=== PATIENT | female | born 1980 | race American Indian/Alaskan Native ===

== ENCOUNTER 2022-02-23 10:33 | Emergency (ER) | payer BC ==
[2022-02-23 12:26] LABS: Mean Corpuscular HGB Conc 28 % (30-34); Platelet Count 453 K/mm3 (140-440); Red Blood Count 4.75 M/mm3 (3.65-5.03)
[2022-02-23 12:49] LABS: Alanine Aminotransferase 6 units/L (7-56); Albumin 3.8 g/dL (3.9-5); BUN/Creatinine Ratio 7; Blood Urea Nitrogen 6 mg/dL (7-17); Calcium 8.9 mg/dL (8.4-10.2); Hemolysis Index 0
[2022-02-23 12:51] LABS: Hematocrit 23.9 % (30.3-42.9); Hemoglobin 6.7 gm/dl (10.1-14.3); Mean Corpuscular Volume 50 fl (79-97); Red Cell Distribution Width 20.7 % (13.2-15.2)
--- NOTE | 2022-02-23 12:52 | Emergency Department Report ---
ED General Adult HPI - General Chief complaint: Recheck/Abnormal Lab/Rx Stated complaint: DR ESTRADA BLOOD TRANSFUSION Time Seen by Provider: 02/23/22 12:36 Source: patient, RN notes reviewed, old records reviewed Mode of arrival: Ambulatory Limitations: No Limitations - History of Present Illness Initial comments: The patient was evaluated in the emergency department for symptoms described in the history of present illness. He/she was evaluated in the context of the global COVID-19 pandemic, which necessitated consideration that the patient might be at risk for infection with the virus that causes COVID-19. Institutional protocols and algorithms that pertain to the evaluation of patients at risk for COVID-19 are in a state of rapid change based on information released by regulatory bodies including the CDC and federal and state organizations. These policies and algorithms were followed during the patient's care in the emergency department. Please note that these policies, procedures and recommendations changed on a rapid basis. The patient is a 41-year-old female who was referred to the emergency room by her primary care doctor for possible blood transfusion. The patient reports that she recently got insurance. The patient reports that she was recently living in [place], [place], but has relocated to [place] about 2 years ago. She recently got insurance, and just started seeing a new primary care doctor. Her current past medical history includes body mass index of 41, hypertension, fibroids, and anxiety. She reports no headache, neck pain, chest pain, abdominal pain, vomiting, hematemesis or bright red blood per rectum, and she denies heavy vaginal bleeding at the moment. On review of systems, she reports intermittent "dizzy spells", nonspecific, the last of which happened last week, and is typically improved with consumption of water. She denies oral contraceptive use, the possibility of , travel, surgery, immobilization, DVT/PE risk factors. She is not certain that she would have presented to the emergency room, if not instructed by her outpatient primary care doctor. She reports that outpatient laboratory studies were ordered, as part of her onboarding process with a new primary care doctor. She is not currently taking iron sulfate supplementation. Associated Symptoms: denies other symptoms - Related Data Previous Rx's Medication Instructions Recorded Last Taken Type Docusate Sodium [Colace] 100 mg PO BID PRN #60 capsule 02/23/22 Unknown Rx Ferrous Sulfate [Feosol 325 MG tab] 325 mg PO TID #90 tablet 02/23/22 Unknown Rx Allergies Allergy/AdvReac Type Severity Reaction Status Date / Time adhesive tape Allergy Rash Verified 02/23/22 11:14 hydrocodone Allergy Hives Verified 02/23/22 11:14 ED Review of Systems ROS: Stated complaint: DR ESTRADA BLOOD TRANSFUSION Other details as noted in HPI Comment: All other systems reviewed and negative Cardiovascular: other (Nonspecific dizziness) Psychiatric: anxiety ED Past Medical Hx - Past Medical History Previous Medical History?: Yes Hx Hypertension: Yes Additional medical history: ANEMIA, ANXIETY - Surgical History Past Surgical History?: No - Medications Home Medications: Home Medications Medication Instructions Recorded Confirmed Last Taken Type Docusate Sodium [Colace] 100 mg PO BID PRN #60 capsule 02/23/22 Unknown Rx Ferrous Sulfate [Feosol 325 MG tab] 325 mg PO TID #90 tablet 02/23/22 Unknown Rx ED Physical Exam - General Limitations: No Limitations General appearance: alert, in no apparent distress, obese - Head Head exam: Present: atraumatic, normocephalic - Eye Eye exam: Present: normal appearance, EOMI. Absent: nystagmus - ENT ENT exam: Present: normal exam, normal orophraynx, mucous membranes moist, normal external ear exam - Neck Neck exam: Present: normal inspection, full ROM. Absent: tenderness, meningismus - Respiratory Respiratory exam: Present: normal lung sounds bilaterally. Absent: respiratory distress, wheezes, rales, rhonchi, stridor, decreased breath sounds - Cardiovascular Cardiovascular Exam: Present: regular rate, normal rhythm, normal heart sounds. Absent: bradycardia, tachycardia, irregular rhythm, systolic murmur, diastolic murmur, rubs, gallop - GI/Abdominal GI/Abdominal exam: Present: soft. Absent: distended, tenderness, guarding, rebound, rigid, pulsatile mass - Extremities Exam Extremities exam: Present: normal inspection, full ROM, other (2+ pulses noted in the bilateral upper and lower extremities. There is no palpable cord. negative Homans sign. Muscular compartments are soft. The pelvis is stable.). Absent: calf tenderness - Back Exam Back exam: Present: normal inspection, full ROM. Absent: tenderness, CVA tenderness (R), CVA tenderness (L), paraspinal tenderness, vertebral tenderness - Neurological Exam Neurological exam: Present: alert, oriented X3, other (No facial droop. Tongue midline. Extraocular movements intact bilaterally. Facial sensation intact to light touch in V1, V2, V3 distribution bilaterally. 5 and a 5 strength in 4 extremities. Sensation intact to light touch in 4 extremities.). Absent: motor sensory deficit - Psychiatric Psychiatric exam: Present: normal affect, normal mood - Skin Skin exam: Present: warm, dry, intact, normal color. Absent: rash ED Course Vital Signs 02/23/22 02/23/22 02/23/22 10:59 12:51 13:10 Temperature 98.1 F Pulse Rate 87 80 Respiratory 14 12 Rate Blood Pressure 125/82 O2 Sat by Pulse 100 98 Oximetry O2 Sat by Pulse Oximetry [ Digit-Finger] 02/23/22 02/23/22 02/23/22 13:14 13:16 13:30 Temperature Pulse Rate 81 82 Respiratory 17 18 Rate Blood Pressure 131/82 127/82 O2 Sat by Pulse 100 98 Oximetry O2 Sat by Pulse 99 Oximetry [ Digit-Finger] 02/23/22 02/23/22 02/23/22 13:46 14:00 14:10 Temperature 98.0 F Pulse Rate 79 79 84 Respiratory 17 17 19 Rate Blood Pressure 127/82 125/82 125/82 O2 Sat by Pulse 100 97 100 Oximetry O2 Sat by Pulse Oximetry [ Digit-Finger] 02/23/22 02/23/22 02/23/22 14:16 14:31 14:45 Temperature Pulse Rate 82 80 75 Respiratory 13 19 17 Rate Blood Pressure 125/82 125/82 115/75 O2 Sat by Pulse 100 100 100 Oximetry O2 Sat by Pulse Oximetry [ Digit-Finger] 02/23/22 02/23/22 02/23/22 15:01 15:15 15:31 Temperature Pulse Rate 78 74 80 Respiratory 21 21 21 Rate Blood Pressure 128/79 130/78 144/70 O2 Sat by Pulse 99 100 100 Oximetry O2 Sat by Pulse Oximetry [ Digit-Finger] 02/23/22 02/23/22 02/23/22 15:45 16:01 16:15 Temperature Pulse Rate 80 82 80 Respiratory 22 17 10 L Rate Blood Pressure 133/75 125/72 124/74 O2 Sat by Pulse 99 100 100 Oximetry O2 Sat by Pulse Oximetry [ Digit-Finger] 02/23/22 02/23/22 02/23/22 16:31 16:45 17:01 Temperature Pulse Rate 80 81 81 Respiratory 19 20 19 Rate Blood Pressure 129/72 129/72 124/81 O2 Sat by Pulse 100 99 98 Oximetry O2 Sat by Pulse Oximetry [ Digit-Finger] 02/23/22 02/23/22 02/23/22 17:16 17:29 17:31 Temperature 98.9 F Pulse Rate Respiratory Rate Blood Pressure 124/81 124/81 O2 Sat by Pulse 81 L 100 Oximetry O2 Sat by Pulse Oximetry [ Digit-Finger] 02/23/22 02/23/22 02/23/22 17:45 18:01 18:11 Temperature Pulse Rate Respiratory Rate Blood Pressure 124/81 130/86 130/86 O2 Sat by Pulse 100 100 100 Oximetry O2 Sat by Pulse Oximetry [ Digit-Finger] 02/23/22 02/23/22 02/23/22 18:21 18:31 18:41 Temperature Pulse Rate Respiratory Rate Blood Pressure 130/86 130/86 130/86 O2 Sat by Pulse 100 99 98 Oximetry O2 Sat by Pulse Oximetry [ Digit-Finger] 02/23/22 02/23/22 02/23/22 19:01 19:15 19:31 Temperature Pulse Rate Respiratory Rate Blood Pressure 124/92 130/86 130/86 O2 Sat by Pulse 98 99 94 Oximetry O2 Sat by Pulse Oximetry [ Digit-Finger] 02/23/22 02/23/22 02/23/22 19:45 20:01 20:15 Temperature Pulse Rate Respiratory Rate Blood Pressure 130/86 132/89 132/89 O2 Sat by Pulse 100 99 99 Oximetry O2 Sat by Pulse Oximetry [ Digit-Finger] 02/23/22 02/23/22 02/23/22 20:30 20:45 20:58 Temperature 98.3 F Pulse Rate Respiratory Rate Blood Pressure 130/86 132/89 O2 Sat by Pulse 98 100 Oximetry O2 Sat by Pulse Oximetry [ Digit-Finger] - Reevaluation(s) Reevaluation #1: 02/23/22 12:51 Differential diagnosis, include but not limited to: Anemia, electrolyte derangement, orthostasis, dehydration, laboratory error Assessment and plan: 41-year-old female who is referred to the emergency room for asymptomatic anemia. This is likely a chronic finding, as the patient does not appear to be acutely decompensated. She is clinically sober with a GCS of 15, and she is not currently tachycardic, tachypneic or hypoxic. She denies vaginal bleeding and rectal bleeding at this time. CBC pending. Contacted the lab, they cannot find it. I have asked for escalated this matter to the director of laboratory studies, Manuel Camara, to address and follow-up missing CBC. Currently awaiting result. EKG pending. Reassess. I discussed this plan of care with the patient. She is agreeable to the plan of care. All questions answered. 02/23/22 13:04 Patient is found to have a microcytic anemia. Her laboratory studies are othe rwise unremarkable, with exception of mild hypokalemia. Went back and we discussed this with patient. Discussed risk, benefits alternatives of packed red blood cell transfusion. Patient prefers to have packed red blood cell transfusion. Therefore, I have ordered packed red blood cell transfusion. Once blood transfusion is complete, discharged with iron sulfate supplementation, and outpatient follow-up. I will also refer her to outpatient hematology, in case that she would like to start following up for outpatient iron infusions. - Pulse Oximetry Interpretation Digit-Finger Initial Pulse Oximetry Readin O2 Sat by Pulse Oximetry: 99 Actions Taken: none ED Medical Decision Making - Lab Data Result diagrams: 02/23/22 12:05 02/23/22 12:05 Vital Signs 02/23/22 10:59 Temperature 98.1 F Pulse Rate 87 Respiratory 14 Rate Blood Pressure 125/82 O2 Sat by Pulse 100 Oximetry Lab Results 02/23/22 02/23/22 Range/Units 12:05 12:05 Sodium 138 (137-145) mmol/L Potassium 3.4 L (3.6-5.0) mmol/L Chloride 101.5 (98-107) mmol/L Carbon Dioxide 28 (22-30) mmol/L Anion Gap 12 mmol/L BUN 6 L (7-17) mg/dL Creatinine 0.9 (0.6-1.2) mg/dL Estimated GFR > 60 ml/min BUN/Creatinine Ratio 7 % Glucose 101 H (65-100) mg/dL Calcium 8.9 (8.4-10.2) mg/dL Total Bilirubin 0.30 (0.1-1.2) mg/dL AST 9 (5-40) units/L ALT 6 L (7-56) units/L Alkaline Phosphatase 85 (35-129) units/L Total Protein 8.0 (6.3-8.2) g/dL Albumin 3.8 L (3.9-5) g/dL Albumin/Globulin Ratio 0.9 % Blood Type A POSITIVE Lab Results 02/23/22 02/23/22 02/23/22 Range/Units 12:05 12:05 12:05 WBC 11.6 H (4.5-11.0) K/mm3 RBC 4.75 (3.65-5.03) M/mm3 Hgb 6.7 L (10.1-14.3) gm/dl Hct 23.9 L (30.3-42.9) % MCV 50 L (79-97) fl MCH 14 L (28-32) pg MCHC 28 L (30-34) % RDW 20.7 H (13.2-15.2) % Plt Count 453 H (140-440) K/mm3 PT 13.9 (12.2-14.9) Sec. INR 0.97 (0.87-1.13) Sodium 138 (137-145) mmol/L Potassium 3.4 L (3.6-5.0) mmol/L Chloride 101.5 (98-107) mmol/L Carbon Dioxide 28 (22-30) mmol/L Anion Gap 12 mmol/L BUN 6 L (7-17) mg/dL Creatinine 0.9 (0.6-1.2) mg/dL Estimated GFR > 60 ml/min BUN/Creatinine Ratio 7 % Glucose 101 H (65-100) mg/dL Calcium 8.9 (8.4-10.2) mg/dL Magnesium (1.7-2.3) mg/dL Total Bilirubin 0.30 (0.1-1.2) mg/dL AST 9 (5-40) units/L ALT 6 L (7-56) units/L Alkaline Phosphatase 85 (35-129) units/L Total Protein 8.0 (6.3-8.2) g/dL Albumin 3.8 L (3.9-5) g/dL Albumin/Globulin Ratio 0.9 % HCG, Quant (0-4) mIU/mL Blood Type Antibody Screen 02/23/22 02/23/22 02/23/22 Range/Units 12:05 12:05 12:05 WBC (4.5-11.0) K/mm3 RBC (3.65-5.03) M/mm3 Hgb (10.1-14.3) gm/dl Hct (30.3-42.9) % MCV (79-97) fl MCH (28-32) pg MCHC (30-34) % RDW (13.2-15.2) % Plt Count (140-440) K/mm3 PT (12.2-14.9) Sec. INR (0.87-1.13) Sodium (137-145) mmol/L Potassium (3.6-5.0) mmol/L Chloride (98-107) mmol/L Carbon Dioxide (22-30) mmol/L Anion Gap mmol/L BUN (7-17) mg/dL Creatinine (0.6-1.2) mg/dL Estimated GFR ml/min BUN/Creatinine Ratio % Glucose (65-100) mg/dL Calcium (8.4-10.2) mg/dL Magnesium 2.20 (1.7-2.3) mg/dL Total Bilirubin (0.1-1.2) mg/dL AST (5-40) units/L ALT (7-56) units/L Alkaline Phosphatase (35-129) units/L Total Protein (6.3-8.2) g/dL Albumin (3.9-5) g/dL Albumin/Globulin Ratio % HCG, Quant < 2 (0-4) mIU/mL Blood Type A POSITIVE Antibody Screen Negative - EKG Data -: EKG Interpreted by Wy EKG shows normal: sinus rhythm Rate: normal - EKG Data When compared to previous EKG there are: previous EKG unavailable 02/23/22 13:13 The EKG is interpreted at 13: 10 Sinus rhythm, 81 bpm. Normal axis, normal P wave axis, high left ventricular voltage, motion artifact, QTC 41 ms. This is not a STEMI. Abnormal EKG. No pr ior for comparison peer Critical care attestation.: If time is entered above; I have spent that time in minutes in the direct care of this critically ill patient, excluding procedure time. ED Disposition Clinical Impression: Microcytic anemia, Hypokalemia Disposition: HOME / SELF CARE / HOMELESS Is pt being admited?: No Does the pt Need Aspirin: No Condition: Good Instructions: Iron-Rich Diet Additional Instructions: Recommend that patient follow-up with a primary care doctor or hand dry cleaner such as Dr. Bruce within the next week for microcytic presumed iron deficiency anemia. Patient may coordinate with a hand dry cleaner such as Dr. Bruce to organize outpatient iron infusions. In the meantime, patient will receive a prescription for iron sulfate, please exercise caution when taking this medication, as it may cause black stool, abdominal pain/constipation. Please consume an iron rich diet as directed in discharge instructions, drink at least 4 cups of water per day, a low sodium diet, and consume plenty of fiber, vegetable, lean protein. Patient may take the prescribed Colace as needed for constipation, if she develops constipation from iron sulfate tablets. Please return to the emergency room right away with new pain, worsened pain, migration of pain, projectile vomiting, change in mental status, confusion, inability tolerate liquid feeds, new, worsened or different symptoms not present on the initial emergency room evaluation Prescriptions: Docusate Sodium [Colace] 100 mg PO BID PRN #60 capsule PRN Reason: Constipation Ferrous Sulfate [Feosol 325 MG tab] 325 mg PO TID #90 tablet Referrals: CHILO BRUCE MD [Staff Physician] - 3-5 Days [facility] [Provider Group] - 3-5 Days Forms: Work/School Release Form(ED)
[2022-02-23 12:53] LABS: INR 0.97 (0.87-1.13)
[2022-02-23] MEDS ORDERED: POTASSIUM CHLORIDE ER 20 MEQ TAB PO ONE (12:59)
[2022-02-23] MEDS ORDERED: SODIUM CHLORIDE 0.9% 500 ML 500 ML IV ONE (13:04)
[2022-02-23 20:57] VITALS: BP 132/89
--- NOTE | 2022-02-25 14:03 | Electrocardiograph Report ---
[facility] Test Date: 2022-02-23 Test Time: 13:05:21 Pat Name: CHAYITO URIOSTEGUI Department: Room: Gender: F [employer]: dilcia : 1980 Requested By: GARY BONILLA Order Number: [id number] Reading MD: Andrew Felder Measurements Intervals [place] Rate: 81 P: 38 LA: 188 QRS: 13 QRSD: 97 T: 8 QT: 415 QTc: 481 Interpretive Statements Sinus rhythm No previous ECG available for comparison Electronically Signed On 02-25-2022 14:03:39 EDT by Andrew Felder
== END 2022-02-23 21:01 | disposition home or self-care (01) ==
LOC: ED 10:33
DX: D50.9 Iron deficiency anemia, unspecified (principal); E87.6 Hypokalemia; Z88.6 Allergy status to analgesic agent; I10 Essential (primary) hypertension
CPT/HCPCS: 36415; 36430; 80053; 83735; 84702; 85027; 85610; 86850; 86900; 86901; 86920; 93005; 99283; J7040; P9016

== ENCOUNTER 2022-05-31 23:22 | Emergency (ER) | payer BC ==
[2022-06-01] MEDS ORDERED: ASPIRIN 325 MG TAB PO ONE (06:16)
--- NOTE | 2022-06-01 06:22 | Emergency Department Report ---
HPI - General Chief Complaint: Chest Pain PUI?: No Time Seen by Provider: 06/01/22 06:22 - [facility] HPI: Patient is a 41-year-old female with a history of hypertension who presents with chest pain for intermittently for the last 2 weeks. Pain is squeezing at times and sharp at times and has been intermittent without any known exacerbating or alleviating factors. No worsening with exertion. She does states that maybe sometimes stretching alleviates it. She has had some slight lightheadedness intermittently. No shortness of breath nausea vomiting or diaphoresis. She does have a history of hypertension and was taken off her blood pressure medications recently because her blood pressure was too low but was put back on it a couple weeks ago. She denies history of diabetes hyperlipidemia. No family history of coronary artery disease. BMI is 42. Denies tobacco use. ED Past Medical Hx - Past Medical History Previous Medical History?: Yes Hx Hypertension: Yes (MEDICATED) Additional medical history: ANEMIA, ANXIETY - Surgical History Past Surgical History?: Yes Additional Surgical History: MYOMECTOMY - Social History Smoking Status: Current Every Day Smoker Substance Use Type: None - Medications Home Medications: Home Medications Medication Instructions Recorded Confirmed Last Taken Type Docusate Sodium [Colace] 100 mg PO BID PRN #60 capsule 02/23/22 Unknown Rx Ferrous Sulfate [Feosol 325 MG tab] 325 mg PO TID #90 tablet 02/23/22 Unknown Rx ED Review of Systems ROS: Stated complaint: CHEST PAIN Other details as noted in HPI Physical Exam - Physical Exam Vital Signs: Vital Signs 05/31/22 23:28 Temperature 99.5 F Pulse Rate 99 H Respiratory 18 Rate Blood Pressure 153/93 O2 Sat by Pulse 98 Oximetry ED Course Vital Signs 05/31/22 23:28 Temperature 99.5 F Pulse Rate 99 H Respiratory 18 Rate Blood Pressure 153/93 O2 Sat by Pulse 98 Oximetry Critical care attestation.: If time is entered above; I have spent that time in minutes in the direct care of this critically ill patient, excluding procedure time. ED Disposition Condition: Stable
--- NOTE | 2022-06-01 06:46 | XRay Report ---
CHEST 2 VIEWS INDICATION / CLINICAL INFORMATION: Chest Pain for 2 weeks, increasing today STUDY TIME: 632 COMPARISON: 06/06/2012 FINDINGS: SUPPORT DEVICES: None. HEART / MEDIASTINUM: No significant abnormality. LUNGS / PLEURA: No significant acute pulmonary or pleural abnormality. No pneumothorax. ADDITIONAL FINDINGS: No significant additional findings. Signer Name: Lance Shields MD Signed: 06/01/2022 6:41 AM Workstation Name: [id number]
[2022-06-01 06:48] LABS: Basophils # (Auto) 0.1 K/mm3 (0.0-0.1); Basophils % (Auto) 0.6 % (0.0-1.8); Eosinophils # (Auto) 0.1 K/mm3 (0.0-0.4); Hematocrit 30.2 % (30.3-42.9); Hemoglobin 10.6 gm/dl (10.1-14.3); Lymphocytes % (Auto) 28.2 % (13.4-35.0); Mean Corpuscular HGB Conc 35 % (30-34); Monocytes # (Auto) 0.6 K/mm3 (0.0-0.8); Monocytes % (Auto) 4.3 % (0.0-7.3); Platelet Count 425 K/mm3 (140-440); Red Blood Count 5.24 M/mm3 (3.65-5.03); Red Cell Distribution Width 19.6 % (13.2-15.2)
[2022-06-01 07:02] LABS: Mean Corpuscular Volume 58 fl (79-97)
[2022-06-01 07:35] LABS: Alanine Aminotransferase 11 units/L (7-56); Albumin 4.3 g/dL (3.9-5); BUN/Creatinine Ratio 8; Blood Urea Nitrogen 7 mg/dL (7-17); Calcium 9.5 mg/dL (8.4-10.2); Hemolysis Index 9
--- NOTE | 2022-06-01 08:16 | Emergency Department Report ---
ED General Adult HPI - General Chief complaint: Chest Pain Stated complaint: CHEST PAIN PUI?: No Time Seen by Provider: 06/01/22 06:22 Source: patient Mode of arrival: Ambulatory Limitations: No Limitations - History of Present Illness Initial comments: 41-year-old female presents to the ED complaining of chest pain patient denies any. She has a history of chest pain but denies any chest pain at present time. Patient states a week ago that her doctor took her off her blood pressure medicine due to control. She stated that after a week she is restarted on losartan and noticed some chest pain. She states that chest pain is relieved at present time. Denies any nausea vomiting or shortness of breath at present time. Patient is alert and oriented x3. No acute distress noted. No ill appearance noted. - Related Data Previous Rx's Medication Instructions Recorded Last Taken Type Docusate Sodium [Colace] 100 mg PO BID PRN #60 capsule 02/23/22 Unknown Rx Ferrous Sulfate [Feosol 325 MG tab] 325 mg PO TID #90 tablet 02/23/22 Unknown Rx Allergies Allergy/AdvReac Type Severity Reaction Status Date / Time adhesive tape Allergy Rash Verified 02/23/22 11:14 hydrocodone Allergy Hives Verified 02/23/22 11:14 ED Review of Systems ROS: Stated complaint: CHEST PAIN Other details as noted in HPI Constitutional: denies: chills, fever Eyes: denies: eye pain, eye discharge, vision change ENT: denies: ear pain, throat pain Respiratory: denies: cough, shortness of breath, wheezing Cardiovascular: denies: chest pain, palpitations Endocrine: no symptoms reported Gastrointestinal: denies: abdominal pain, nausea, diarrhea Genitourinary: denies: urgency, dysuria, discharge Musculoskeletal: denies: back pain, joint swelling, arthralgia Skin: denies: rash, lesions Neurological: denies: headache, weakness, paresthesias Psychiatric: denies: anxiety, depression Hematological/Lymphatic: denies: easy bleeding, easy bruising ED Past Medical Hx - Past Medical History Previous Medical History?: Yes Hx Hypertension: Yes (MEDICATED) Additional medical history: ANEMIA, ANXIETY - Surgical History Past Surgical History?: Yes Additional Surgical History: MYOMECTOMY - Social History Smoking Status: Current Every Day Smoker Substance Use Type: None - Medications Home Medications: Home Medications Medication Instructions Recorded Confirmed Last Taken Type Docusate Sodium [Colace] 100 mg PO BID PRN #60 capsule 02/23/22 Unknown Rx Ferrous Sulfate [Feosol 325 MG tab] 325 mg PO TID #90 tablet 02/23/22 Unknown Rx ED Physical Exam - General Limitations: No Limitations General appearance: alert, in no apparent distress - Head Head exam: Present: atraumatic, normocephalic - Eye Eye exam: Present: normal appearance - ENT ENT exam: Present: mucous membranes moist - Neck Neck exam: Present: normal inspection - Respiratory Respiratory exam: Present: normal lung sounds bilaterally. Absent: respiratory distress - Cardiovascular Cardiovascular Exam: Present: regular rate, normal rhythm. Absent: systolic murmur, diastolic murmur, rubs, gallop - GI/Abdominal GI/Abdominal exam: Present: soft, normal bowel sounds - Extremities Exam Extremities exam: Present: normal inspection - Back Exam Back exam: Present: normal inspection - Neurological Exam Neurological exam: Present: alert, oriented X3 - Psychiatric Psychiatric exam: Present: normal affect, normal mood - Skin Skin exam: Present: warm, dry, intact, normal color. Absent: rash ED Course Vital Signs 05/31/22 23:28 Temperature 99.5 F Pulse Rate 99 H Respiratory 18 Rate Blood Pressure 153/93 O2 Sat by Pulse 98 Oximetry ED Medical Decision Making - Lab Data Result diagrams: 06/01/22 06:39 06/01/22 06:39 - EKG Data When compared to previous EKG there are: no significant change - Medical Decision Making 41-year-old female presents to the ED complaining of chest pain patient denies any. She has a history of chest pain but denies any chest pain at present time. Patient states a week ago that her doctor took her off her blood pressure m edicine due to control. She stated that after a week she is restarted on losartan and noticed some chest pain. She states that chest pain is relieved at present time. Denies any nausea vomiting or shortness of breath at present time. Patient is alert and oriented x3. No acute distress noted. No ill appearance noted. Physical examination is unremarkable. No change from EKG. Rechecked the patient is resting quietly , comfortable and feeling better. I discussed the results of diagnostic study, my clinical impression and the plan for further treatment with the patient. Patient agrees with plan and discharge at this present time. All question addressed. I have given the patient instruction regarding a diagnosis ,expectation ,follow- up and return precaution. I explained to the patient that emergent condition may arise and to return to the ED for new worsen and any new persisting condition. I have explained the importance of following up with the primary care physician or referral physician listed below has instructed. The patient verbalized understanding of discharge instruction. Abnormal Lab Results 06/01/22 06/01/22 06:39 06:39 WBC 14.2 H RBC 5.24 H Hgb 10.6 Hct 30.2 L MCV 58 L MCH 20 L MCHC 35 H RDW 19.6 H Plt Count 425 Lymph % (Auto) 28.2 [place] % (Auto) 4.3 Eos % (Auto) 1.0 Baso % (Auto) 0.6 Lymph # (Auto) 4.0 [place] # (Auto) 0.6 Eos # (Auto) 0.1 Baso # (Auto) 0.1 Seg Neutrophils % 65.9 Seg Neutrophils # 9.3 H Sodium 139 Potassium 3.4 L Chloride 97.1 L Carbon Dioxide 31 H Anion Gap 14 BUN 7 Creatinine 0.9 Estimated GFR > 60 BUN/Creatinine Ratio 8 Glucose 106 H Calcium 9.5 Total Bilirubin 0.40 AST 12 ALT 11 Alkaline Phosphatase 112 Troponin T < 0.010 Total Protein 7.5 Albumin 4.3 Albumin/Globulin Ratio 1.3 Lipase 26 Critical care attestation.: If time is entered above; I have spent that time in minutes in the direct care of this critically ill patient, excluding procedure time. ED Disposition Clinical Impression: Chest pain Qualifiers: Chest pain type: other chest pain Qualified Code(s): R07.89 - Other chest pain; R07.8 - Other chest pain Disposition: 01 HOME / SELF CARE / HOMELESS Is pt being admited?: No Does the pt Need Aspirin: No Condition: Stable Instructions: Nonspecific Chest Pain, Adult Additional Instructions: continue take medication as prescribed Return to the ED for any worsening symptom Referrals: [facility], [email or web address] [Provider Group] - 3-5 Days Forms: Work/School Release Form(ED) Time of Disposition: 08:16
[2022-06-01 08:27] VITALS: BP 112/77
--- NOTE | 2022-06-01 10:56 | Electrocardiograph Report ---
[facility] Test Date: 2022-05-31 Test Time: 23:29:16 Pat Name: CHAYITO URIOSTEGUI Department: Room: Gender: F Iron Worker: MONE : 1980 Requested By: ED DOC Order Number: [id number] Reading MD: Jonatan Gallardo Measurements Intervals [place] Rate: 92 P: 39 SC: 171 QRS: 17 QRSD: 99 T: -8 QT: 372 QTc: 459 Interpretive Statements Sinus rhythm Borderline T abnormalities, diffuse leads Compared to ECG 02/23/2022 13:05:21 T-wave abnormality now present Electronically Signed On 06-01-2022 10:56:12 EDT by Jonatan Gallardo
== END 2022-06-01 08:38 | disposition home or self-care (01) ==
LOC: ED 23:22
DX: R07.9 Chest pain, unspecified (principal); I10 Essential (primary) hypertension; F17.200 Nicotine dependence, unspecified, uncomplicated
CPT/HCPCS: 36415; 71046; 80053; 83690; 84484; 85025; 93005; 99284